=== PATIENT | female | born 1965 | race Caucasian/White ===

== ENCOUNTER 2021-03-13 20:15 | Emergency (ER) | payer BC, OTHER ==
[2021-03-13] MEDS ORDERED: Alum Hydroxide/Mag Hydroxide 15 ML, Lidocaine 2% 15 ML PO ONE ×2 (20:21)
--- NOTE | 2021-03-13 20:24 | EDM.PDOC ---
ED HPI GENERAL MEDICAL PROBLEM - General Stated Complaint: CHEST PAINS Time Seen by Provider: 03/13/21 20:22 Source of Information: Reports: Patient History Limitations: Reports: No Limitations - History of Present Illness INITIAL COMMENTS - FREE TEXT/NARRATIVE: 55 yo female with chest pain/epigastric pain. Started suddenly after supper tonight,and associated with 1 episode of emesis. No SOB or cough.No radiation of the pain. Previously healthy with a clean medical history,and does not drink or smoke. - Related Data Allergies Allergy/AdvReac Type Severity Reaction Status Date / Time No Known Allergies Allergy Verified 03/13/21 20:41 ED ROS GENERAL - Review of Systems Review Of Systems: Comprehensive ROS is negative, except as noted in HPI. ED EXAM, GI/ABD - Physical Exam Exam: See Below Exam Limited By: No Limitations General Appearance: Alert, WD/WN, No Apparent Distress Eyes: Bilateral: Normal Appearance, EOMI Ears: Normal External Exam, Normal Canal, Hearing Grossly Normal, Normal TMs Nose: Normal Inspection, Normal Mucosa, No Blood Throat/Mouth: Normal Inspection, Normal Lips, Normal Teeth, Normal Gums, Normal Oropharynx, Normal Voice, No Airway Compromise Head: Atraumatic, Normocephalic Neck: Normal Inspection, Supple, Non-Tender, Full Range of Motion Respiratory/Chest: No Respiratory Distress, Lungs Clear, Normal Breath Sounds, No Accessory Muscle Use, Chest Non-Tender Cardiovascular: Normal Peripheral Pulses, Regular Rate, Rhythm, No Edema, No Gallop, No JVD, No Murmur, No Rub GI/Abdominal Exam: Normal Bowel Sounds, Soft, Non-Tender, No Organomegaly, No Distention, No Abnormal Bruit, No Mass, Pelvis Stable (Female) Exam: Deferred Rectal (Female) Exam: Deferred Back Exam: Normal Inspection, Full Range of Motion, NT Extremities: Normal Inspection, Normal Range of Motion, Non-Tender, Normal Capillary Refill, No Pedal Edema Neurological: Alert, Oriented, CN II-XII Intact, Normal Cognition, Normal Gait, Normal Reflexes, No Motor/Sensory Deficits Psychiatric: Normal Affect, Normal Mood Skin Exam: Warm, Dry, Intact, Normal Color, No Rash Lymphatic: No Adenopathy #1 Interpretation EKG Date: 03/13/21 Rhythm: NSR [place]: Normal P-Wave: Present QRS: Normal ST-T: Normal Comparison: NA - No Prior EKG Course - Orders/Labs/Meds Orders: Active Orders 24 hr Category Date Time Status CXR [Chest 2V] [CR] Stat Exams 03/13/21 20:20 Taken EKG 12 Lead [EK] Routine Ther 03/13/21 20:20 Ordered Labs: Laboratory Tests 03/13/21 03/13/21 03/13/21 Range/Units 20:25 20:25 20:25 WBC 9.3 (3.0-10.3) x10-3/uL RBC 5.09 (3.60-5.20) x10(6)uL Hgb 14.7 (11.4-15.5) g/dL Hct 44.0 (34.2-48.2) % MCV 86.4 (76.7-100.5) fL MCH 29.0 (23.9-33.9) pg MCHC 33.5 (31.9-34.8) g/dL RDW 13.8 (12.3-16.5) % Plt Count 322 (151-488) x10(3)uL MPV 7.2 (7.1-12.4) fL Neut % (Auto) 50.5 (30.8-76.2) % Lymph % (Auto) 38.1 (18.4-52.1) % Pettis % (Auto) 7.7 (4.4-15.7) % Eos % (Auto) 2.7 (0.6-8.1) % Baso % (Auto) 1.0 (0.2-1.5) % Neut # (Auto) 4.7 (1.5-6.3) x10-3/uL Lymph # (Auto) 3.5 (1.0-4.4) x10-3/uL Pettis # (Auto) 0.7 (0.3-1.0) x10-3/uL Eos # (Auto) 0.2 (0.0-0.8) x10-3/uL Baso # (Auto) 0.1 (0.0-0.1) x10-3/uL Sodium 140 (135-145) mmol/L Potassium 3.4 L (3.5-5.3) mmol/L Chloride 103 (100-110) mmol/L Carbon Dioxide 29 (21-32) mmol/L BUN 15 (7-18) mg/dL Creatinine 1.0 (0.55-1.02) mg/dL Est Cr Clr Drug Dosing TNP Estimated GFR (MDRD) 57 L (>60) BUN/Creatinine Ratio 15.0 (9-20) Glucose 97 (80-116) mg/dL Calcium 8.4 L (8.6-10.2) mg/dL Total Bilirubin 0.4 (0.1-1.3) mg/dL AST 79 H (5-25) IU/L ALT 67 H (12-36) U/L Alkaline Phosphatase 106 (56-112) IU/L Troponin I 5.6 (4.0-60.3) pg/mL Total Protein 7.2 (6.0-8.0) g/dL Albumin 3.8 (3.5-5.2) g/dL Globulin 3.4 g/dL Albumin/Globulin Ratio 1.1 Lipase (73-393) U/L 12/24/21 Range/Units 20:25 WBC (3.0-10.3) x10-3/uL RBC (3.60-5.20) x10(6)uL Hgb (11.4-15.5) g/dL Hct (34.2-48.2) % MCV (76.7-100.5) fL MCH (23.9-33.9) pg MCHC (31.9-34.8) g/dL RDW (12.3-16.5) % Plt Count (151-488) x10(3)uL MPV (7.1-12.4) fL Neut % (Auto) (30.8-76.2) % Lymph % (Auto) (18.4-52.1) % Pettis % (Auto) (4.4-15.7) % Eos % (Auto) (0.6-8.1) % Baso % (Auto) (0.2-1.5) % Neut # (Auto) (1.5-6.3) x10-3/uL Lymph # (Auto) (1.0-4.4) x10-3/uL Pettis # (Auto) (0.3-1.0) x10-3/uL Eos # (Auto) (0.0-0.8) x10-3/uL Baso # (Auto) (0.0-0.1) x10-3/uL Sodium (135-145) mmol/L Potassium (3.5-5.3) mmol/L Chloride (100-110) mmol/L Carbon Dioxide (21-32) mmol/L BUN (7-18) mg/dL Creatinine (0.55-1.02) mg/dL Est Cr Clr Drug Dosing Estimated GFR (MDRD) (>60) BUN/Creatinine Ratio (9-20) Glucose (80-116) mg/dL Calcium (8.6-10.2) mg/dL Total Bilirubin (0.1-1.3) mg/dL AST (5-25) IU/L ALT (12-36) U/L Alkaline Phosphatase (56-112) IU/L Troponin I (4.0-60.3) pg/mL Total Protein (6.0-8.0) g/dL Albumin (3.5-5.2) g/dL Globulin g/dL Albumin/Globulin Ratio Lipase 217 (73-393) U/L Meds: Medications Discontinued Medications Generic Name Dose Route Start Last Admin Trade Name Freq PRN Reason Stop Dose Admin Al Hydroxide/Mg Hydroxide 15 0 ml 03/13/21 20:21 03/13/21 20:42 ml/ Lidocaine HCl 15 ml PO 03/13/21 20:22 30 ml ONETIME ONE Administration Departure - Departure Time of Disposition: 21:32 Disposition: Home, Self-Care 01 Clinical Impression: Chest pain, Epigastric abdominal pain - Discharge Information Instructions: Gastritis, Adult Referrals: PCP,None [Primary Care Provider] - 03/16/21 Forms: ED Department Discharge Additional Instructions: Use OTC Omeprazole. Return to ED with worsening symptoms. See PCP on Tuesday for follow up - Problem List & Annotations (1) Epigastric abdominal pain SNOMED Code(s): 53824211 Code(s): R10.13 - EPIGASTRIC PAIN Status: Acute Current Visit: No (2) Chest pain SNOMED Code(s): 86075701 Code(s): R07.9 - CHEST PAIN, UNSPECIFIED Status: Acute Current Visit: No - Problem List Review Problem List Initiated/Reviewed/Updated: Yes - My Orders Last 24 Hours: My Active Orders 03/13/21 20:20 CXR [Chest 2V] [CR] Stat EKG 12 Lead [EK] Routine - Assessment/Plan Last 24 Hours: My Active Orders 03/13/21 20:20 CXR [Chest 2V] [CR] Stat EKG 12 Lead [EK] Routine Plan: She improved on GI cocktail. Her vital signs,labs ,EKG all remained stable. Will DC home to followup on Tuesday
--- NOTE | 2021-03-16 11:36 | CR ---
INDICATION: Chest pain. CHEST, TWO VIEWS: PA and lateral views of the chest, 03/13/21 - no comparisons. The heart did not appear enlarged. The aorta is tortuous to a moderate degree. Overlying EKG leads are noted. Very minimal dextroconcave scoliosis is suggested at the lower middle thoracic spine. An active infiltrate or effusion was not identified. IMPRESSION: No acute process. MTDD
== END 2021-03-13 21:39 | disposition home or self-care (01) ==
LOC: FB.ED 20:15
DX: R07.9 Chest pain, unspecified (principal); R10.13 Epigastric pain
CPT/HCPCS: 36415; 71046; 80053; 83690; 84484; 85025; 93005; 99285; A9270

== ENCOUNTER 2023-05-08 03:17 | Emergency (ER) | payer BC, OTHER ==
[2023-05-08] MEDS ORDERED: Ondansetron 4 MG/2 ML SDV IVPUSH ONE (03:25)
[2023-05-08] MEDS ORDERED: Ketorolac 30 MG/ML SDV IVPUSH ONE (03:25)
[2023-05-08 03:49] LABS: BASOPHILS ABSOLUTE AUTO 0.1 x10-3/uL (0.0-0.1); BASOPHILS PERCENT AUTO 1.1 % (0.2-1.5); EOSINOPHILS ABSOLUTE AUTO 0.3 x10-3/uL (0.0-0.8); HEMATOCRIT 42.3 % (34.2-48.2); HEMOGLOBIN 14.5 g/dL (11.4-15.5); LYMPHOCYTES ABSOLUTE AUTO 2.5 x10-3/uL (1.0-4.4); LYMPHOCYTES PERCENT AUTO 36.5 % (18.4-52.1); MEAN CORPUSCULAR HEMOGLOBIN 29.2 pg (23.9-33.9); MEAN CORPUSCULAR HGB CONC 34.3 g/dL (31.9-34.8); MEAN CORPUSCULAR VOLUME 85.1 fL (76.7-100.5); MEAN PLATELET VOLUME 7.5 fL (7.1-12.4); MONOCYTES ABSOLUTE AUTO 0.6 x10-3/uL (0.3-1.0); MONOCYTES PERCENT AUTO 9.3 % (4.4-15.7); NEUTROPHILS ABSOLUTE AUTO 3.3 x10-3/uL (1.5-6.3); NEUTROPHILS PERCENT AUTO 48.1 % (30.8-76.2); PLATELET COUNT,PLT 252 x10(3)uL (151-488); RED BLOOD CELL COUNT 4.97 x10(6)uL (3.60-5.20); RED CELL DISTRIBUTION WIDTH 13.2 % (12.3-16.5); WHITE BLOOD CELL COUNT,WBC 6.8 x10-3/uL (3.0-10.3)
[2023-05-08 03:59] LABS: A/G RATIO 1.1; ALANINE AMINOTRANSFERASE,ALT 32 U/L (12-36); ALBUMIN 3.5 g/dL (3.5-5.2); ALKALINE PHOSPHATASE 102 IU/L (56-112); ASPARTATE AMNIOTRANSFERASE,AST 18 IU/L (5-25); BILIRUBIN TOTAL 0.4 mg/dL (0.1-1.3); BLOOD UREA NITROGEN,BUN 17 mg/dL (7-18); BUN/CREATININE RATIO 18.9 (9-20); CARBON DIOXIDE,CO2 29 mmol/L (21-32); CHLORIDE,CL 105 mmol/L (100-110); CREATININE 0.9 mg/dL (0.55-1.02); ESTIMATED GFR 74 mL/min (>60); GLUCOSE RANDOM 124 mg/dL (80-116); POTASSIUM,K 3.6 mmol/L (3.5-5.3); PROTEIN TOTAL,TP 6.8 g/dL (6.0-8.0); SODIUM,NA 142 mmol/L (135-145)
[2023-05-08 04:04] LABS: TROPONIN I 5.6 pg/mL (4.0-60.3)
[2023-05-08] MEDS: Alum Hydroxide/Mag Hydroxide 15 ML, Lidocaine 2% 15 ML PO ONE (04:45)
== END 2023-05-08 07:00 | disposition home or self-care (01) ==
LOC: FB.ED 03:17
DX: R10.13 Epigastric pain (principal); R07.89 Other chest pain
CPT/HCPCS: 71045; 80053; 83690; 84484; 85025; 93005; 99285; A9270

== ENCOUNTER 2024-08-03 06:50 | Day surgery (SDC) | payer BC ==
[~2024-08-03 06:50] MED LIST: Sodium Chloride 0.9% 10 ML Syringe FLUSH PRN
[2024-08-03] MEDS ORDERED: Propofol 200 MG/20 ML SDV IV ONE (06:51)
[2024-08-03] MEDS ORDERED: diphenhydrAMINE 50 MG/ML SDV IVPUSH ONE (06:51)
[2024-08-03] MEDS ORDERED: fentaNYL 100 MCG/2 ML SDV IV ONE (06:51)
[2024-08-03] MEDS ORDERED: Dexamethasone 4 MG/ML SDV INJECT ONE (06:51)
[2024-08-03] MEDS ORDERED: HYDROmorphone 2 MG/ML SDV IV ONE (06:51)
[2024-08-03] MEDS ORDERED: Succinylcholine 200 MG/10 ML MDV IV ONE (06:51)
[2024-08-03] MEDS ORDERED: Rocuronium 100 MG/10 ML MDV IV ONE (06:51)
[2024-08-03] MEDS ORDERED: Lactated Ringers 1,000 ML IV ONE (06:51)
[2024-08-03] MEDS ORDERED: Glycopyrrolate 0.2 MG/ML 5 ML MDV IV ONE (06:51)
[2024-08-03] MEDS ORDERED: Ondansetron 4 MG/2 ML SDV IVPUSH ONE (06:51)
[2024-08-03] MEDS ORDERED: Neostigmine Methylsulfate 10 MG/10 ML MDV IVPUSH ONE (06:51)
[2024-08-03] MEDS ORDERED: Midazolam 1 MG/ML 2 ML SDV IV ONE (06:51)
[2024-08-03] MEDS ORDERED: Lidocaine 1% PF 2 ML SDV INJECT ONE (06:51)
[2024-08-03] MEDS: Lactated Ringers 1,000 ML IV SCH (07:30)
[2024-08-03] MEDS: Acetaminophen 500 MG Tab PO ONE (07:43)
[2024-08-03] MEDS: Gabapentin 300 MG Cap PO ONE (07:43)
[2024-08-03] MEDS: Lidocaine 1% with EPINEPHrine 1:100,000 20 ML MDV INJECT ONE (08:20)
[2024-08-03] MEDS: Bupivacaine 0.5% 30 ML SDV INJECT ONE (08:20)
[2024-08-03] MEDS ORDERED: Morphine 2 MG/ML SYRINGE IVPUSH PRN (09:45)
== END 2024-08-03 13:20 | disposition home or self-care (01) ==
LOC: FB.SDS 06:50
PROVIDERS: ATTEND Surgery
DX: K80.12 Calculus of gallbladder with acute and chronic cholecystitis without obstruction (principal); K82.8 Other specified diseases of gallbladder; Z79.899 Other long term (current) drug therapy
CPT/HCPCS: 00790; 88304; A9270-GY; J0330; J0665; J1100; J1171; J1200; J1596; J2003; J2004; J2250; J2405; J2704; J2710; J3010; J7120